=== PATIENT | male | born 1955 | race African-American/Black ===

== ENCOUNTER → 2020-03-23 09:34 | Outpatient (CLI) | payer MEDICARE, SELFPAY ==
--- NOTE | ~2020-03-23 | CT_ITS ---
EXAMINATION: CT lung screening DATE: 03/23/2020 09:52 INDICATION: Personal history of nicotine dependence, current smoker with 40 pack year history TECHNIQUE: Computed tomography (CT) of the chest was performed without intravenous contrast. The dose -length product (DLP) was 121.22 mGy-cm. Automated exposure control and iterative reconstruction tech [email or web address] were employed. COMPARISON: None FINDINGS: There is mild emphysema. A 3 mm nodule is present in the right upper lobe on image 51. Calc ified pulmonary nodules are consistent with old granulomatous disease. There is mild dependent atelec tasis. The lungs are free of focal airspace opacities. No pleural effusion or pneumothorax is identif ied. There is calcified coronary artery atherosclerosis. The liver is diffusely low in attenuation wh en compared with the spleen, consistent with hepatic steatosis. Mild bilateral gynecomastia is noted. Subtle hypoattenuating lesions of the liver measure fluid attenuation and likely represent cysts. Th ere is severe mid thoracic spondylosis. IMPRESSION: 1. Lung-RADS category 2: Benign appearance or behavior. Continue annual screening with noncontrast lo w-dose chest CT in 12 months. Reviewed, dictated and finalized at location A. /VAULT SUPERVISOR IMPRESSION: 1. Lung-RADS category 2: Benign appearance or behavior. Continue annual screeni ng with noncontrast low-dose chest CT in 12 months.
--- NOTE | ~2020-03-23 | US_ITS ---
EXAMINATION: US aorta [facility] DATE: 03/23/2020 09:57 INDICATION: Abdominal aortic aneurysm screening, history of hypertension, current smoker TECHNIQUE: Grayscale, color Doppler, and pulsed Doppler images of the aorta and common iliac arteries were obtained. COMPARISON: None. FINDINGS: Maximum vascular dimensions are as follows: Proximal aorta: 2.8 cm Mid aorta: 1.6 cm Distal aorta: 1.5 cm Right common iliac artery: 1.2 cm Left common iliac artery: 1.1 cm There is no evidence of abdominal aortic aneurysm. IMPRESSION: 1. No sonographic evidence of abdominal aortic aneurysm. Reviewed, dictated and finalized at location A. ASE SPECIALIST
== END ==
PROVIDERS: PCP Family Medicine; Visit Provider Family Medicine
DX: Z12.2 Encounter for screening for malignant neoplasm of respiratory organs (principal); Z13.6 Encounter for screening for cardiovascular disorders; Z87.891 Personal history of nicotine dependence
CPT/HCPCS: 71271; 76706

== ENCOUNTER 2020-04-13 12:32 | Outpatient (CLI) | payer MEDICARE, SELFPAY ==
--- NOTE | 2020-04-14 09:49 | P.PCNPFT_ITS ---
PFT Interpretation This is a pulmonary function test with pre and post-bronchodilator spirometry, plethysmography and diffusing capacity. The test was performed and results interpreted in accordance with the 2019 and 2005 ATS/ERS Task Force guidelines respectively using the Global Lung Function Initiative-2012 reference equations. Patient demonstrated good effort and c ooperation. Reproducibility criteria were met. The quality of the pre bronchodilator spirometry maneuver was Grade A and post bronchodilator spirometry maneuver was Grade A. Findings: Spirometry: There is decreased maximal expiratory airflow at low lung volumes with a mildly concave expiratory flow tracing. The contour of the inspiratory flow tracing is normal. The pre bronchodilator FVC is 2.29 L, 74% predicted. The pre bronchodilator FEV1 is 1.66 L, 69% predicted. The FEV1: FVC ratio is 72%. The post bronchodilator FVC is 2.16 L, representing a 6% decrease. The post bronchodilator FEV1 is 1.64 L, representing a 1% decrease. Plethysmography: The total lung capacity is 4.21 L, 80% predicted. The functional residual capacity is 1.94 L, 67% predicted. The residual volume is 1.81 L, 92% predicted. Diffusing capacity: The absolute diffusion capacity is 14.4, 58% predicted. The DLCO corrected for alveolar volume is 4.29, 100% predicted. Impression: There is decreased maximal expiratory air low lung volumes, a normal FEV1:FVC ratio and a mildly decreased FEV1 suggestive of small airways disease. There is no significant improvement after inhaling a single dose of alb uterol. The lung volumes are normal. The absolute diffusing capacity is moderately decreased and normalizes when corrected for alveolar volume. There are no prior studies for comparison
== END 2020-04-13 12:33 | disposition home or self-care (01) ==
PROVIDERS: PCP Family Medicine; Visit Provider Family Medicine
DX: R06.00 Dyspnea, unspecified (principal); F17.200 Nicotine dependence, unspecified, uncomplicated
CPT/HCPCS: 94060; 94726; 94729

== ENCOUNTER 2020-07-04 14:30 | Outpatient (RCR) | payer MEDICARE, SELFPAY ==
[2020-05-29 12:48] VITALS: BMI 32.3
[2020-05-29 12:49] VITALS: BMI 32.3
== END 2020-08-14 11:58 | disposition home or self-care (01) ==
LOC: ANHDMC 14:30
PROVIDERS: PCP Family Medicine; Referring Provider Family Medicine; Visit Provider Family Medicine
DX: E11.9 Type 2 diabetes mellitus without complications (principal); Z71.89 Other specified counseling; Z71.3 Dietary counseling and surveillance
CPT/HCPCS: 97802; G0108; G0109

== ENCOUNTER 2020-09-13 09:12 | Outpatient (RCR) | payer MEDICARE, SELFPAY | END 2020-09-13 11:14 | disposition home or self-care (01) | LOC: ANHDMC 09:12 | PROVIDERS: PCP Family Medicine; Referring Provider Family Medicine; Visit Provider Family Medicine | DX: E11.9 Type 2 diabetes mellitus without complications (principal); Z71.89 Other specified counseling | CPT/HCPCS: G0108 ==

== ENCOUNTER 2021-03-22 09:28 | Outpatient (CLI) | payer MEDICARE, SELFPAY ==
--- NOTE | ~2021-03-22 | CT_ITS ---
EXAMINATION:CT lung screening DATE: 03/22/2021 09:54 INDICATION: Encounter for screening for malignant neoplasms of lung. Current smoker with 30 pack year history. TECHNIQUE: Computed tomography (CT) of the chest was performed without intravenous contrast. Automate d exposure control and iterative reconstruction technique were employed. The dose-length product (DLP ) was 115.44 mGy-cm. COMPARISON: Chest CT 03/23/2020 FINDINGS: There is mild emphysema. There is a 3 mm nodule and small cluster of tree-in-bud opacities in posterior segment right upper lobe. There is mild atelectasis bilaterally. Calcified bilateral bob g nodules are consistent with old granulomatous disease. No pleural effusion. The heart size is izabel l. There are coronary artery calcifications. No pericardial effusion. There are cysts in the liver me asuring up to 17 mm. There is bilateral gynecomastia. There are old healed left rib fractures. There is severe thoracic spondylosis. IMPRESSION: 1. Lung-RADS category 2: Benign appearance or behavior. Continue annual screening with noncontrast lo w-dose chest CT in 12 months. Reviewed, dictated and finalized at location E. RVISOR OF COMMUNICATIONS IMPRESSION: 1. Lung-RADS category 2: Benign appearance or behavior. Continue annual screeni ng with noncontrast low-dose chest CT in 12 months.
== END 2021-03-22 09:29 | disposition home or self-care (01) ==
LOC: ANHIMG 09:34
PROVIDERS: PCP Family Medicine; Visit Provider Family Medicine
DX: Z12.2 Encounter for screening for malignant neoplasm of respiratory organs (principal); Z87.891 Personal history of nicotine dependence
CPT/HCPCS: 71271

== ENCOUNTER 2022-04-03 15:58 | Outpatient (CLI) | payer MEDICARE, SELFPAY ==
--- NOTE | ~2022-04-03 | CT_ITS ---
EXAMINATION:CT lung screening DATE: 04/03/2022 16:43 INDICATION: Lung cancer screening. Current smoker with 40 pack year history. TECHNIQUE: Computed tomography (CT) of the chest was performed without intravenous contrast. Automate d exposure control and iterative reconstruction technique were employed. The dose-length product (DLP ) was 90.13 mGy-cm. COMPARISON: Chest CT 03/22/2021 FINDINGS: There is minimal atelectasis on the left. There are nodules in right upper lobe measuring u p to 3 mm . Calcified right lung nodules are consistent with old granulomatous disease. No pleural ef fusion. The heart size is normal. There are coronary artery calcifications. No pericardial effusion. There is mild bilateral gynecomastia. There are cysts in the liver measuring up to 16 mm. There is se emmanuelle thoracic spondylosis. IMPRESSION: 1. Lung-RADS category 2: Benign appearance or behavior. Continue annual screening with noncontrast lo w-dose chest CT in 12 months. Reviewed, dictated and finalized at location A. ESS CONTROL SPECIALIST IMPRESSION: 1. Lung-RADS category 2: Benign appearance or behavior. Continue annual screeni ng with noncontrast low-dose chest CT in 12 months.
== END 2022-04-03 15:59 | disposition home or self-care (01) ==
PROVIDERS: PCP Family Medicine; Visit Provider Family Medicine
DX: Z12.2 Encounter for screening for malignant neoplasm of respiratory organs (principal); F17.210 Nicotine dependence, cigarettes, uncomplicated
CPT/HCPCS: 71271

== ENCOUNTER 2022-10-03 15:39 | Outpatient (CLI) | payer MEDICARE, SELFPAY ==
--- NOTE | ~2022-10-03 | MR_ITS ---
EXAMINATION: MR lumbar spine wo con DATE: 10/03/2022 16:58 INDICATION: Chronic left-sided sciatica TECHNIQUE: Magnetic resonance imaging (MRI) of the lumbar spine was performed without intravenous con trast. Sequences included sagittal T2-weighted FSE, sagittal T2-weighted FS FSE, sagittal T1-weighted FSE, and axial T2-weighted FSE. COMPARISON: None FINDINGS: 7 degrees lower lumbar levocurvature. Sagittal alignment is normal. Vertebral body heights are normal . Severe disc height loss with degenerative fibrovascular endplate changes at L4-L5. Moderate disc he ight loss at T10-T11 and with additional fibrovascular degenerative endplate changes at L1-L2 through L3-L4. Mild disc height loss at T12-L1. The conus medullaris terminates at L1-L2. There is normal si gnal in the caudal spinal cord. Paravertebral soft tissues are unremarkable. The following disc level s are specifically discussed: T12-L1: Disc is mildly bulging. There is mild right and moderate left facet joint osteoarthritis. The re is mild bilateral, right greater than left neural foraminal stenosis. There is minimal central can al stenosis. L1-L2: Disc is bulging. There is moderate to severe bilateral facet joint osteoarthritis. There is mo derate left and mild to moderate right neural foraminal stenosis. There is mild central canal stenosi s. L2-L3: Disc is bulging. There is severe bilateral facet joint osteoarthritis. There is moderate right and mild to moderate left neural foraminal stenosis. There is mild central canal stenosis. L3-L4: Disc is bulging with superimposed annular fissure. There is severe bilateral facet joint osteo arthritis. There is moderate right and moderate to severe left neural foraminal stenosis. There is mi ld central canal stenosis. L4-L5: Disc is bulging with annular fissure. There is moderate left and moderate to severe right face t joint osteoarthritis. There is moderate to severe right and moderate left neural foraminal stenosis . There is mild central canal stenosis. L5-S1: Disc is minimally bulging. There is moderate bilateral facet joint osteoarthritis. There is mi ld bilateral neural foraminal stenosis. There is no central canal stenosis. IMPRESSION: 1. Severe lumbar spondylosis. Reviewed, dictated and finalized at location A.
== END 2022-10-03 15:40 | disposition home or self-care (01) ==
PROVIDERS: PCP Family Medicine; Visit Provider Family Medicine
DX: M47.26 Other spondylosis with radiculopathy, lumbar region (principal)
CPT/HCPCS: 72148

== ENCOUNTER 2023-04-06 09:58 | Outpatient (CLI) | payer MEDICARE, SELFPAY ==
--- NOTE | ~2023-04-06 | CT_ITS ---
CT Scan of the Chest without Contrast: Clinical Indication: Lung cancer screening, personal history of nicotine dependence Technique: Contiguous sections were acquired throughout the chest without intravenous contrast. Dose reduction technique was used on this scan by utilizing automated exposure control and iterative recon struction technique. The dose-length product (DLP) was 110.49 mGy-cm. COMPARISON: 04/03/2022 Findings: There is no evidence of any significant mediastinal, hilar or axillary lymphadenopathy. Coronary fauzia ry calcifications are present. There is no evidence of pleural or pericardial effusion. Several small calcified granulomas are present. Images through the upper abdomen reveal multiple small hypodense hepatic lesions, similar to prior ex am, likely multiple small cysts. Impression: Lung RADS 2: Benign appearance. 12 month follow-up screening CT advised. Reviewed, dictated and finalized at [facility]. Y TESTER Impression: Lung RADS 2: Benign appearance. 12 month follow-up screening CT advised.
== END 2023-04-06 09:59 | disposition home or self-care (01) ==
PROVIDERS: PCP Family Medicine; Visit Provider Family Medicine
DX: Z12.2 Encounter for screening for malignant neoplasm of respiratory organs (principal); F17.210 Nicotine dependence, cigarettes, uncomplicated
CPT/HCPCS: 71271

== ENCOUNTER 2024-04-13 09:21 | Outpatient (CLI) | payer MEDICARE, SELFPAY ==
--- NOTE | ~2024-04-13 | CT_ITS ---
EXAMINATION:CT lung screening DATE: 04/13/2024 09:38 INDICATION: Nicotine dependence, cigarettes, uncomplicated. Current smoker with 40 pack year history. TECHNIQUE: Computed tomography (CT) of the chest was performed without intravenous contrast. Automate d exposure control and iterative reconstruction technique were employed. The dose-length product (DLP ) was 107.40 mGy-cm. COMPARISON: Chest CT 04/06/2023 FINDINGS: There is mild atelectasis bilaterally. Calcified bilateral lung nodules are consistent with old granulomatous disease. There is a 2 mm nodule in right upper lobe. No pleural effusion. The hear t size is normal. There are coronary artery calcifications. No pericardial effusion. There is bilater al gynecomastia. There are cysts in the liver measuring up to 17 mm. There is severe thoracic spondyl osis. IMPRESSION: 1. Lung-RADS category 2: Benign appearance or behavior. Continue annual screening with noncontrast lo w-dose chest CT in 12 months. Reviewed, dictated and finalized at location A. WASHER IMPRESSION: 1. Lung-RADS category 2: Benign appearance or behavior. Continue annual screeni ng with noncontrast low-dose chest CT in 12 months.
--- OUTSIDE RECORDS SUMMARY | 2024-04-13 10:02 | XMS_ITS | Referral Summary ---
Author Organization [facility] [place] [facility] [address] Address [address] [place] [address] Care Team Providers Care Airframe Technical Officer Name Role Phone Walt Downing MD Primary Care Provider Allergies No known active allergies Social History Tobacco Use Types Packs/Day Years Used Date Smoking Tobacco: Never Assessed Personal Safety Answer Date Recorded Getting School Help Needed Not on file 04/25 Sex and Gender Information Value Date Recorded Sex Assigned at Not on file Legal Sex Male 2:53 PM [employer] Gender Identity Not on file Sexual Orientation Not on file Plan of Treatment Not on file Insurance [facility] MDCR HMO [facility] Address: [facility] [address] [place] [address] Care Teams Airframe Technical Officer Relationship Specialty Start Date End Date Walt Downing MD [address] [facility] [address] [place] [address] PCP - General Family Medicine 03/15/20
--- OUTSIDE RECORDS SUMMARY | 2024-04-13 10:02 | XMS_ITS | Clinical Summary ---
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
== END 2024-04-13 09:22 | disposition home or self-care (01) ==
PROVIDERS: PCP Family Medicine; Visit Provider Family Medicine
DX: Z12.2 Encounter for screening for malignant neoplasm of respiratory organs (principal); F17.210 Nicotine dependence, cigarettes, uncomplicated
CPT/HCPCS: 71271